=== PATIENT | female | born 1960 | race Caucasian/White ===

== ENCOUNTER → 2023-04-14 | Outpatient (CLI) | payer BC | LOC: COL.PUL 13:57 | DX: R06.02 Shortness of breath (principal) ==

== ENCOUNTER → 2023-05-15 | Outpatient (CLI) | payer BC | LOC: CANSCHCLI → COL.CARD 05-14 09:37 → COL.PUL 05-14 10:00 → COL.CARD 05-14 10:00 | DX: R06.02 Shortness of breath (principal) | CPT/HCPCS: J7674 ==